=== PATIENT | male | born 1985 | race Caucasian/White ===

== ENCOUNTER 2017-09-16 10:28 | Emergency (ER) | payer BC ==
--- NOTE | 2017-09-16 10:37 | EDM.PDOC ---
ED HPI GENERAL MEDICAL PROBLEM - General Stated Complaint: LUNG PAIN, BODY ACHES Time Seen by Provider: 09/16/17 10:36 Source of Information: Reports: Patient - History of Present Illness INITIAL COMMENTS - FREE TEXT/NARRATIVE: HISTORY AND PHYSICAL: History of present illness: [Patient has had cough and fever over the last 24-48 hours, persistent cough keeping him awake at night fever chills sweats yesterday, mostly persistent cough and burning of chest with cough No apparent distress no current fever nausea vomiting chills sweats ] Review of systems: As per history of present illness and below otherwise all systems reviewed and negative. Past medical history: As per history of present illness and as reviewed below otherwise noncontributory. Surgical history: As per history of present illness and as reviewed below otherwise noncontributory. Social history: No reported history of drug or alcohol abuse. Family history: As per history of present illness and as reviewed below otherwise noncontributory. Physical exam: HEENT: Atraumatic, normocephalic, pupils reactive, negative for conjunctival pallor or scleral icterus, mucous membranes moist, throat clear, neck supple, nontender, trachea midline. Lungs: Clear to auscultation, breath sounds equal bilaterally, chest nontender. Post DuoNeb Heart: S1S2, regular, negative for clicks, rubs, or JVD. Abdomen: Soft, nondistended, nontender. Negative for masses or hepatosplenomegaly. Negative for costovertebral tenderness. Pelvis: Stable nontender. Genitourinary: Deferred. Rectal: Deferred. Extremities: Atraumatic, negative for cords or calf pain. Neurovascular unremarkable. Neuro: Awake, alert, oriented. Cranial nerves II through XII unremarkable. Cerebellum unremarkable. Motor and sensory unremarkable throughout. Exam nonfocal. Diagnostics: [Chest 2 views Influenza A ] Therapeutics: [HFA Tamiflu Phenergan with codeine ] Impression: [Influenza] Definitive disposition and diagnosis as appropriate pending reevaluation and review of above. rib pain Pain Score (Numeric/FACES): 6 - Related Data Allergies Allergy/AdvReac Type Severity Reaction Status Date / Time Penicillins Allergy Difficulty Verified 09/16/17 10:35 Breathing Home Meds: Home Meds guaiFEN/Phenyleph/Acetaminophn [Tylenol Cold Head Congest Cplt] 1 tab PO DAILY PRN 09/16/17 [History] ED ROS GENERAL - Review of Systems Review Of Systems: ROS reveals no pertinent complaints other than HPI. ED EXAM, GENERAL - Physical Exam Exam: See Below Course - Vital Signs Last Recorded V/S: Last Vital Signs Temp 97.3 F 09/16/17 10:37 Pulse 117 H 09/16/17 10:37 Resp 20 09/16/17 10:37 BP 148/90 H 09/16/17 10:37 Pulse Ox 97 09/16/17 10:37 - Orders/Labs/Meds Orders: Active Orders 24 hr Category Date Time Status RT Aerosol Therapy [RC] ASDIRECTED Care 09/16/17 11:22 Active Chest 2V [CR] Stat Exams 09/16/17 10:36 Taken Meds: Medications Discontinued Medications Generic Name Dose Route Start Last Admin Trade Name Freq PRN Reason Stop Dose Admin Albuterol/Ipratropium 3 ml 09/16/17 11:22 Duoneb 3.0-0.5 Mg/3 Ml NEB 09/16/17 11:23 ONETIME ONE Departure - Departure Time of Disposition: 11:32 Disposition: Home, Self-Care 01 Condition: Good Clinical Impression: Influenza - Discharge Information Referrals: PCP,None [Primary Care Provider] - Additional Instructions: The following information is given to patients seen in the emergency department who are being discharged to home. This information is to outline your options for follow-up care. We provide all patients seen in our emergency department with a follow-up referral. The need for follow-up, as well as the timing and circumstances, are variable depending upon the specifics of your emergency department visit. If you don't have a primary care physician on staff, we will provide you with a referral. We always advise you to contact your personal physician following an emergency department visit to inform them of the circumstance of the visit and for follow-up with them and/or the need for any referrals to a consulting specialist. The emergency department will also refer you to a specialist when appropriate. This referral assures that you have the opportunity for follow-up care with a specialist. All of these measure are taken in an effort to provide you with optimal care, which includes your follow-up. Under all circumstances we always encourage you to contact your private physician who remains a resource for coordinating your care. When calling for follow-up care, please make the office aware that this follow-up is from your recent emergency room visit. If for any reason you are refused follow-up, please contact the [facility] emergency department at and asked to speak to the emergency department charge nurse. - My Orders Last 24 Hours: My Active Orders 09/16/17 10:36 Chest 2V [CR] Stat 09/16/17 11:22 RT Aerosol Therapy [RC] ASDIRECTED - Assessment/Plan Last 24 Hours: My Active Orders 09/16/17 10:36 Chest 2V [CR] Stat 09/16/17 11:22 RT Aerosol Therapy [RC] ASDIRECTED
[2017-09-16] MEDS ORDERED: Albuterol/Ipratropium 3.0-0.5 MG/3 ML Neb Soln NEB ONE (11:22)
--- NOTE | 2017-09-17 19:16 | CR ---
EXAM DATE: 09/16/17 PATIENT'S AGE: 31 Patient: MANISHA MONTEMAYOR Facility: [place], [place] Site . Site : [id number] Study: XRay Chest [id number]/14/2018 10:52:40 AM Ordering Physician: Donte Loo Final Report: INDICATION: Pain and shortness of breath since yesterday. TECHNIQUE: PA and lateral chest x-ray. FINDINGS: Fine nodular interstitial prominence throughout both lungs is very nonspecific but in a patient of this age could be related to a mild diffuse inflammatory process such as a viral pneumonitis. Clinical correlation recommended. No focal dense infiltrate or consolidation either lung. Heart size normal. Chest otherwise is unremarkable. Dictated by Bill Dotson MD @ Sep 16 2017 10:59AM (Electronic Signature) Report Signed by Proxy. BRIAN
== END 2017-09-16 11:49 | disposition home or self-care (01) ==
LOC: MW.ED 10:28
DX: J11.1 Influenza due to unidentified influenza virus with other respiratory manifestations (principal); Z88.0 Allergy status to penicillin; Z79.899 Other long term (current) drug therapy
CPT/HCPCS: 71046; 71046-26; 87804; 94640; 99283; 99284-25